=== PATIENT | male | born 1970 ===

== ENCOUNTER 2019-10-14 12:06 | Emergency (ER) | payer BC ==
--- OUTSIDE RECORDS SUMMARY | 2019-10-14 12:14 | XMS REPORT | Continuity of Care Document ---
:1970 External Reference #:[id number] Author Name RAJAT Shay Address [address] [place] [address] Care Team Providers Name Role Phone Naresh Radford MD - Family Care Team Information [employer] Medicine Problems Description No Information Available Social History Type Date Description Comments Sex Unknown ETOH Use Rarely consumes alcohol Tobacco Use Start: Unknown Nonsmoker Smoking Status Reviewed: 08/27/19 Nonsmoker Allergies, Adverse Reactions, Alerts Description No Known Drug Allergies Medications Active Medications SIG Qnty Indications Ordering Provider Date Proair HFA 2 puffs every 4 25.5gm R05 Kina Stahl, 09/04/2019 108(90Base) hours as needed MENTAL HYGIENIST mcg/Act Aerosol Hydroxyzine HCL one by mouth 90tabs F31.9 Naresh Gee 12/29/2018 10mg three times a MD Prabhakar Tablets day as needed for anxiety Lamotrigine ER one nightly 30tabs F31.9 Naresh Gee 12/29/2018 200mg MD Prabhakar Tablets ER 24HR Immunizations Description No Information Available Vital Signs Date Vital Result Comment 10/09/2019 7:54pm BP Systolic 130 mmHg BP Diastolic 80 mmHg Heart Rate 90 /min Body Temperature 98.4 F Respiratory Rate 20 /min O2 % BldC Oximetry 98 % Weight 205.00 lb 09/04/2019 7:24pm BP Systolic 132 mmHg BP Diastolic 90 mmHg Heart Rate 86 /min Body Temperature 97.7 F Respiratory Rate 16 /min O2 % BldC Oximetry 97 % Ra Height 65.5 inches 5'5.50" Weight 203.00 lb BMI (Body Mass Index) 33.3 kg/m2 Results Description No Information Available Procedures Date Code Description Status 09/04/2019 42908 Pulse Oximetry Completed 08/27/2019 34617 Trimming Of Nondystrophic Nails, Completed 08/29/2009 73125760 Colonoscopy Completed Medical Devices Description No Information Available Encounters Type Date Location Provider Dx Diagnosis Office Visit 09/04/2019 7:15p Main Office Kina Maribeth, MENTAL HYGIENIST R05 Cough R06.2 Wheezing Office Visit 08/27/2019 9:30a Main Office Renee Aguilar L60.0 Ingrowing nail Danny, JESSICA Office Visit 04/25/2019 12:40p Main Office Naresh Gee F31.9 Bipolar disorder, MD Prabhakar unspecified Assessments Date Code Description Provider 10/09/2019 J06.9 Acute upper respiratory infection, Kina Maribeth, MENTAL HYGIENIST unspecified 10/09/2019 R05 Cough Kina Maribeth, MENTAL HYGIENIST 10/09/2019 R53.81 Other malaise Kina Maribeth, MENTAL HYGIENIST 09/04/2019 R05 Cough Kina Maribeth, MENTAL HYGIENIST 09/04/2019 R06.2 Wheezing Kina Maribeth, MENTAL HYGIENIST 08/27/2019 L60.0 Ingrowing nail Renee Delgado, JESSICA 04/25/2019 F31.9 Bipolar disorder, unspecified Naresh Radford MD Plan of Treatment Future Appointment(s):10/24/2019 12:00 pm - Naresh Radford MD at [facility]2010/09/2019 - Kina Maribeth, FNPJ06.9 Acute upper respiratory infection , unspecifiedNew Labs:Flu A&B (Fma), Ordered: 10/09/19R05 UsdolC28.81 Other malaise Functional Status Description No Information Available Mental Status Description No Information Available Referrals Description No Information Available
[2019-10-14 12:41] VITALS: BP 155/98
--- NOTE | 2019-10-14 12:47 | UC ---
General HPI - HPI Summary HPI Summary: RN notes - c/o cough for one week. Saw PMD on 10/09/19, flu test negative. c/o feeling dizzy and SOB since yesterday. No respiratory distress noted. 48 yo gentleman c/o cough, congestion, sinus pressure progressively worse over the 6-7 days. subj fever, tested negative for influenza at pcp office Tuesday (today is Sun). Since yesterday however, increased dizziness (when bending over to tie shoes, and turning quickly), cough, sinus pressure / congestion + thick nasal mucus no sob / cp / palpitations. has been using otc decongestants. Has not been using prior prescribed inhalers, but has utd medication at home. - History of Current Complaint Chief Complaint: UCRespiratory Stated Complaint: DIZZY,SORT OF BREATH,COUGH Time Seen by Provider: 10/14/19 12:46 Hx Obtained From: Patient Pain Intensity: 2 - Allergy/Home Medications Allergies/Adverse Reactions: Allergies Allergy/AdvReac Type Severity Reaction Status Date / Time No Known Allergies Allergy Verified 10/14/19 12:41 Home Medications: Home Medications lamoTRIgine TAB(*) [Lamictal TAB(*)] 200 mg PO DAILY 10/14/19 [History Confirmed 10/14/19] PMH/Surg Hx/FS Hx/Imm Hx Previously Healthy: Yes - Surgical History Surgical History: None - Family History Known Family History: Positive: Non-Contributory - Social History Alcohol Use: Occasionally Substance Use Type: None Smoking Status (MU): Never Smoked Tobacco Review of Systems All Other Systems Reviewed And Are Negative: Yes Constitutional: Positive: Fever, Fatigue Skin: Positive: Negative Eyes: Positive: Other - see hpi ENT: Positive: Other Respiratory: Positive: Other Cardiovascular: Positive: Negative Gastrointestinal: Positive: Negative Genitourinary: Positive: Negative Motor: Positive: Negative Neurovascular: Positive: Negative Musculoskeletal: Positive: Negative, Calf Tenderness Neurological/Mental Status: Positive: Headache - see hpi Psychological: Positive: Negative Is Patient Immunocompromised?: No Physical Exam Triage Information Reviewed: Yes Appearance: Well-Nourished - sitting up, conversing easily, looks tired but nad Vital Signs: Initial Vital Signs Temp 97.9 F 10/14/19 12:38 Pulse 80 10/14/19 12:38 Resp 16 10/14/19 12:38 BP 155/98 02/16/20 12:38 Pulse Ox 98 10/14/19 12:38 Eye Exam: Normal - a little watery but nad ENT: Positive: Pharyngeal erythema - mild post redness no sores / exudates, Nasal congestion, Nasal drainage, TM dull - R TM dull and davalos, there is redness superior ant and post regions. Intact as visible. EAC mild cerumen. L TM / EAC nad Neck exam: Normal Neck: Positive: Supple, Nontender, No Lymphadenopathy Respiratory Exam: Other - BS equal and full + course bs Respiratory: Positive: No respiratory distress, No accessory muscle use Cardiovascular Exam: Normal Cardiovascular: Positive: RRR, Pulses Normal, Brisk Capillary Refill Abdominal Exam: Normal Abdomen Description: Positive: Nontender Musculoskeletal Exam: Normal - moves x 4 ext's Neurological Exam: Normal - grossly nonfocal Psychological Exam: Normal - nad Skin Exam: Normal - nondiaphoretic no visible or reported rash Course/Dx - Course Course Of Treatment: BP 155/98 - d/w pt, including recommendation for f/u check within 4 weeks. He has an appt for a physical in the next couple weeks with pcp. Reviewed coa / tx plan. Questions as posed answered to the best of my ability. - Diagnoses Provider Diagnosis: Sinusitis, Bronchitis, Serous otitis media Discharge ED - Sign-Out/Discharge Documenting (check all that apply): Patient Departure All imaging exams completed and their final reports reviewed: No Studies - Discharge Plan Condition: Stable Disposition: HOME Prescriptions: Amoxicillin/Clavulanate TAB* [Augmentin TAB 875*] 875 mg PO BID #20 tab Fluticasone NASAL SPRAY 50MCG* [Flonase NASAL SPRAY 50MCG*] 2 spray BOTH NARES DAILY #1 btl Patient Education Materials: Sinusitis (ED), Acute Bronchitis (ED), Serous Otitis Media (ED) Forms: *Work Release Referrals: Naresh Radford MD [Primary Care Provider] - Additional Instructions: Blood pressure today 155/98 - recheck within 4 weeks, primary care provider. Minimize decongestants, minimize caffeine. Hydrate. Use your inhalers as previously prescribed by your primary provider. Follow up with your primary care provider as scheduled. Please seek medical attention for worse or new problems. - Billing Disposition and Condition Condition: STABLE Disposition: Home
== END 2019-10-14 13:16 | disposition home or self-care (01) ==
LOC: UCEAST 12:06
DX: J40 Bronchitis, not specified as acute or chronic (principal); J32.9 Chronic sinusitis, unspecified; H65.90 Unspecified nonsuppurative otitis media, unspecified ear
CPT/HCPCS: 99212; G0463